=== PATIENT | female | born 1975 | race Caucasian/White ===

== ENCOUNTER → 2018-03-08 15:13 | Outpatient (CLI) | payer BC ==
[2015-09-29 16:02] VITALS: BMI 29.6
[~2018-03-08 15:13] MED LIST: COLACE100 MG PO; GLUCOPHAGE1000 MG PO; HYDROCODON-ACE1 EAC7 PO; IBUPROFEN800 MG PO; LISINOPRIL10 MG PO; MULTIPLE VITAMI1 TA1 PO; PRAVACHOL20 MG PO; SINGULAIR10 MG PO; TRULICITY INJ; WELLBUTRIN SR150 MG PO; ZOFRAN ODT4 MG/UDTAB PO
== END | disposition home or self-care (01) ==
LOC: D.MRI 13:30
DX: M25.511 Pain in right shoulder (principal)

== ENCOUNTER → 2018-03-16 12:45 | Outpatient (CLI) | payer BC ==
[2015-09-29 16:02] VITALS: BMI 29.6
== END | disposition home or self-care (01) ==
LOC: D.MRI 12:45
DX: M54.12 Radiculopathy, cervical region (principal)

== ENCOUNTER 2018-08-20 07:06 | Day surgery (SDC) | payer BC ==
[~2018-08-20] VITALS: Ht 157.5 cm; Wt 82.6 kg
[~2018-08-20 07:06] MED LIST changes: +AMITIZA8 MCG PO; +MIRALAX17 GM PO
[2018-08-20 07:33] LABS: HEMATOCRIT 43.8 % (36.0-48.0); HEMOGLOBIN 15.5 g/dL (12-16); MCHC 35.4 g/dL (31.0-37.0); MCV 81.9 fL (80.0-100.0); MEAN PLATELET VOLUME 9.9 fL (7.4-10.4); RBC 5.35 10x6/uL (4.00-5.40); RDW 13.1 % (11.5-14.5); WBC 7.9 10x3/uL (4.8-10.8)
[2018-08-20] MEDS ORDERED: GLYBURIDE1.25 MG PO (08:11)
[2018-08-20 08:13] VITALS: BP 116/79; Ht 157.5 cm; Wt 82.6 kg
[2018-08-20 08:18] LABS: CALC OSMOLALITY 282 mosm/kg (275-300); CALCIUM 8.6 mg/dL (8.5-10.1); CHLORIDE - SERUM 99 mmol/L (98-107); CREATININE - SERUM 0.8 mg/dL (0.6-1.3); GLUCOSE 381 mg/dL (74-106); SODIUM 134 mmol/L (136-145); UREA NITROGEN 10 mg/dL (7-18); eGFR NON AFRICAN AMERICAN 84 mL/min (90-120)
[2018-08-20] MEDS ORDERED: DEMEROL100 MG PO (10:25)
--- NOTE | 2018-08-20 10:40 | NUR ---
NO SKIN PREPERATION WAS REQUIRED FOR MANIPULATION PROCEDURE.
--- NOTE | 2018-08-20 11:50 | NUR ---
1120 [facility] [place] DIET SERVED
--- NOTE | 2018-08-20 11:52 | NUR ---
1145 IV DC'D WITH CATH INTACT DC INSTS GIVEN RX GIVEN VOICED UNDERSTANDING GETTING DRESSED.
--- NOTE | 2018-08-24 14:28 | OP ---
PATIENT NAME: AMELIA MANN MEDICAL RECORD: [id number] LOCATION:[facility] ADMISSION DATE: SURGEON: SHIRLEY BRADSHAW MD DATE OF OPERATION: 08/20/2018 PREOPERATIVE DIAGNOSIS: Adhesive capsulitis of the right shoulder. POSTOPERATIVE DIAGNOSIS: Adhesive capsulitis of the right shoulder. PROCEDURE: Right shoulder manipulation under anesthesia. SURGEON: Shirley Bradshaw MD ANESTHESIA: TIVA. INTRAOPERATIVE COMPLICATIONS: None. SUMMARY OF PATHOLOGIC FINDINGS: The patient did indeed have inferior and anterior adhesions that released nicely with manipulation. OPERATIVE SUMMARY IN DETAIL: After obtaining the appropriate preoperative orthopedic surgery consent as well as anesthetic consultation, evaluation and clearance, the patient was brought to the operating room and placed on the operating table in supine position. After adequate TIVA anesthesia was administered, the patient's scapula was held firmly and stable. Manipulation was carried out first in abduction and then followed by external rotation, internal rotation, forward flexion, and extension. Good overall range of motion was achieved. The patient was then awakened and taken back to outpatient in stable condition. TRANSINT:[id number] Voice Confirmation ID: [id number] DOCUMENT ID: [id number] SHIRLEY BRADSHAW MD at 1428 CC: [id number] DICTATION DATE: 08/24/18 1134 SUPERVISOR SAFETY DEPOSIT: 08/24/18 1227 [facility] [place] 08/20/18 [id number] [place] [address]
== END 2018-08-20 12:00 | disposition home or self-care (01) ==
LOC: D.OPS 07:06 → D.PAN 09:00 → D.OPS 09:00 → D.PAN 09:25 → D.OPS 12:00 → D.PAN 12:45 → D.OPS 15:00 → D.PAN 15:00
PROVIDERS: Anesthesiology
DX: M75.01 Adhesive capsulitis of right shoulder (principal); Z01.812 Encounter for preprocedural laboratory examination

== ENCOUNTER → 2019-04-02 11:31 | Outpatient (CLI) | payer BC ==
[2018-08-20 08:13] VITALS: BMI 33.3
[~2019-04-02 11:31] MED LIST changes: +DEMEROL100 MG PO; +GLYBURIDE1.25 MG PO
== END | disposition home or self-care (01) ==
LOC: D.CT 11:31
PROVIDERS: ATTEND Surgery
DX: K43.2 Incisional hernia without obstruction or gangrene (principal)

== ENCOUNTER 2020-04-29 14:54 | Emergency (ER) | payer BC ==
[~2020-04-29] VITALS: Ht 160 cm; Wt 76.4 kg
[2020-04-29 15:44] VITALS: BP 141/92; Ht 160 cm; Wt 76.4 kg
[2020-04-29] MEDS ORDERED: ARTHROTEC EC 71 EACH PO (16:18)
== END 2020-04-29 16:30 | disposition home or self-care (01) ==
LOC: D.ER 14:54
DX: M54.16 Radiculopathy, lumbar region (principal); E11.9 Type 2 diabetes mellitus without complications; I10 Essential (primary) hypertension; E78.5 Hyperlipidemia, unspecified; J45.909 Unspecified asthma, uncomplicated; Z72.0 Tobacco use; Z79.84 Long term (current) use of oral hypoglycemic drugs